=== PATIENT | male | born 1990 | race Two or more races ===

== ENCOUNTER 2020-09-09 12:46 | Emergency (ER) | payer MEDICAID, OTHER, SELFPAY ==
[~2020-09-09] VITALS: Ht 165.1 cm; Wt 58.0 kg
--- NOTE | 2020-09-09 13:50 | NUR ---
PT LAYING ON TONYA FONTENOT/TATIANA. CALL LIGHT WITHIN REACH.
[2020-09-09] MEDS ORDERED: HYDROcodone/APAP 5/325 TABLET PO PRN (14:00)
[2020-09-09] MEDS ORDERED: HYDROcodone/APAP 5/325 TABLET ONE (14:13)
--- NOTE | 2020-09-09 14:17 | NUR ---
REPORT GIVEN TO AGUSTINA
--- NOTE | 2020-09-09 14:25 | NUR ---
REPORT RECEIVED FROM BARRETT NICOLE. US AT BEDSIDE
--- NOTE | 2020-09-09 15:24 | NUR ---
PT resting in bed, call light in reach. ERMD at bedside to discuss POC.
[2020-09-09 15:52] VITALS: BP 112/61
== END 2020-09-09 15:54 | disposition home or self-care (01) ==
LOC: ED 13:31
DX: G89.29 Other chronic pain (principal); R10.31 Right lower quadrant pain; R10.2 Pelvic and perineal pain
CPT/HCPCS: 76870; 99284